=== PATIENT | male | born 1975 | race Caucasian/White ===

== ENCOUNTER → 2016-08-15 | Outpatient (CLI) | payer OTHER ==
--- NOTE | 2016-08-15 23:11 | MR ---
History pain. Comparison none. TECHNIQUE: Multiplanar multiecho imaging of the temporomandibular joints was performed in the closed and open mo uth position. Temporomandibular joint space on the left side is fairly normal. Meniscus appears normal and there is normal subluxation on the open mouth view on the left side. On the right side there is some narrowing of the temporomandibular joint space. The meniscus is in no rmal position without abnormal subluxation. There is no evidence of a posterior fossa mass. I see no bony destructive process. CONCLUSION: No evidence of meniscal tear involving the temporomandibular joints. There is slight narrowing of the right temporomandibular joint space consistent with mild degenerative disease. No fracture seen.
== END | disposition home or self-care (01) ==
LOC: RADMRIMAIN 17:22
PROVIDERS: ATTEND Otolaryngology
DX: M26.69 Other specified disorders of temporomandibular joint (principal); H92.02 Otalgia, left ear
CPT/HCPCS: 70336

== ENCOUNTER → 2016-09-05 | Outpatient (CLI) | payer OTHER | LOC: PTMAIN 15:19 | PROVIDERS: ATTEND Otolaryngology | DX: K21.9 Gastro-esophageal reflux disease without esophagitis (principal) | CPT/HCPCS: 31579 ==

== ENCOUNTER → 2016-09-05 | Outpatient (CLI) | payer OTHER ==
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
== END | disposition home or self-care (01) ==
LOC: RADCTMAIN 15:21
PROVIDERS: ATTEND Otolaryngology
DX: J32.4 Chronic pansinusitis (principal); J01.00 Acute maxillary sinusitis, unspecified; J34.89 Other specified disorders of nose and nasal sinuses
CPT/HCPCS: 70486

== ENCOUNTER → 2024-08-14 | Outpatient (CLI) | payer BC ==
--- NOTE | 2024-08-14 14:30 | US ---
EXAMINATION TYPE: US abdomen limited DATE OF EXAM: 08/14/2024 COMPARISON: NONE CLINICAL INDICATION: Male, 48 years old with history of R10.84 GENERALIZED ABDOMINAL PAIN; Pt states RUQ pain TECHNIQUE: Grayscale and color Doppler imaging of the right upper quadrant was performed. FINDINGS: EXAM MEASUREMENTS: Liver Length: 15.0 cm Gallbladder Wall: 0.2 cm CBD: 0.6 cm Right Kidney: 11.0 x 6.7 x 5.9 cm [employer]IST NOTES: Pancreas: wnl, tail obscured by overlying bowel gas Liver: Small hyperechoic lesion right posterior lobe= 1.6 x 1.1 x 1.9 cm, otherwise appeared wnl Gallbladder: Probable polyp anterior wall, possible polyps vs. sludge balls within dependent portion , wall not thickened Evidence for sonographic Coe's sign: No CBD: wnl Right Kidney: wnl IMPRESSION: 1. Cholelithiasis versus sludge within the gallbladder. Polyps are not excluded. 2. There is likely a Hemangioma within the right lobe liver. [facility], , 08/14/2024 2:27 PM
== END | disposition home or self-care (01) ==
LOC: RADUSWWP 06:45
PROVIDERS: ATTEND Family Medicine
DX: K81.0 Acute cholecystitis (principal)
CPT/HCPCS: 76705